=== PATIENT | female | born 1995 | race African-American/Black ===

== ENCOUNTER 2021-11-12 11:39 | Outpatient (CLI) | payer OTHER | END 2021-11-12 19:11 | disposition home or self-care (01) | LOC: LABW 11:39 | PROVIDERS: ATTEND Family Medicine | DX: Z34.90 Encounter for supervision of normal pregnancy, unspecified, unspecified trimester (principal); N91.1 Secondary amenorrhea; R10.2 Pelvic and perineal pain | CPT/HCPCS: 36415; 84702 ==

== ENCOUNTER 2022-03-02 21:28 | Emergency (ER) | payer OTHER ==
[~2022-03-02] VITALS: Ht 154.9 cm; Wt 67.6 kg
[2022-03-02 22:02] LABS: PLATELET COUNT 285 K/uL (152-353)
[2022-03-02 22:36] LABS: POTASSIUM 3.3 mmol/L (3.6-5.2)
[2022-03-02 22:50] LABS: PARTIAL THROMBOPLASTIN TIME 23.4 SECONDS (24.5-33.6)
[2022-03-03 06:05] VITALS: BP 105/63; TEMP 99
== END 2022-03-03 06:05 | disposition short-term general hospital (02) ==
LOC: ED 21:28
PROVIDERS: Hospitalist
DX: R10.84 Generalized abdominal pain (principal); Z3A.17 17 weeks gestation of pregnancy; Z11.52 Encounter for screening for COVID-19; V43.63XA Car passenger injured in collision with pick-up truck in traffic accident, initial encounter; Y92.89 Other specified places as the place of occurrence of the external cause
CPT/HCPCS: 36415; 80053; 80307; 80320; 81002; 81015; 84702; 85027; 85610; 85730; 87635; 96365; 96375; 99284; J0696; J2405; U0003